=== PATIENT | male | born 1945 | race Caucasian/White ===

== ENCOUNTER 2017-02-20 05:58 | Inpatient (IN) | payer OTHER ==
[2017-02-13 10:40] LABS: URINE BILIRUBIN NEGATIVE (Negative); URINE BLOOD NEGATIVE (Negative); URINE COLOR YELLOW; URINE GLUCOSE-RANDOM* NEGATIVE (Negative); URINE KETONES NEGATIVE (Negative); URINE LEUKOCYTES-REFLEX NEGATIVE (Negative); URINE PROTEIN (DIPSTICK) NEGATIVE (Negative); URINE SPECIFIC GRAVITY <= 1.005 (1.003-1.035); URINE UROBILINOGEN 0.2 E.U./dl (0.2-1.0)
[2017-02-13 10:42] LABS: CALCIUM 9.5 mg/dL (8.5-10.1); CREATININE 0.9 mg/dL (0.7-1.3); POTASSIUM 4.7 mmol/L (3.5-5.1)
[2017-02-13 10:48] LABS: PROTIME 10.8 Seconds (9.3-11.4)
[~2017-02-20] VITALS: Ht 177.8 cm; Wt 108.0 kg
[2017-02-20] VITALS (8 sets, daily range): BP systolic 130–174; BP diastolic 45–73
[~2017-02-20 05:58] MED LIST: ASPIR 8181 MG PO; LIPITOR 20 MG T20 M1 PO; METFORMIN HCL1000 MG PO; VALSARTAN-HCTZ1 EAC4 PO; VITAMIN D-32000 UNIT PO
[2017-02-20 10:51] LABS: CALCIUM 8.9 mg/dL (8.5-10.1); CREATININE 0.9 mg/dL (0.7-1.3); POTASSIUM 4.5 mmol/L (3.5-5.1)
[2017-02-21 03:25] VITALS: BP 137/47
[2017-02-21 06:09] LABS: ABSOLUTE NEUTROPHILS 8.6 thou/uL (1.4-8.2); BASOPHILS 0.1 % (0.0-2.0); HEMATOCRIT 36.5 % (42.0-52.0); HEMOGLOBIN 12.4 gm/dL (14.0-18.0); LYMPHOCYTES 9.2 % (24.0-44.0); MCH 31.7 pg (26.0-34.0); MCHC 33.9 g/dL (28.0-37.0); MCV 93.4 fL (80.0-100.0); MONOCYTES 7.8 % (1.0-8.0); PLATELET COUNT 153 thou/uL (150-400); POLYS 82.9 % (36.0-66.0); RDW 12.7 % (10.5-14.5); WBC 10.4 thou/uL (4.0-11.0)
[2017-02-21 06:15] LABS: MANUAL DIFF NO
[2017-02-21 06:25] LABS: CALCIUM 8.5 mg/dL (8.5-10.1); CREATININE 1.3 mg/dL (0.7-1.3); MAGNESIUM 1.9 mg/dL (1.8-2.4); POTASSIUM 4.3 mmol/L (3.5-5.1)
[2017-02-21 08:18] VITALS: BP 141/48
[2017-02-21 12:32] VITALS: BP 141/48
[2017-02-21 16:00] VITALS: BP 154/52
[2017-02-21 19:07] VITALS: BP 150/46
[2017-02-22 01:44] VITALS: BP 166/55
[2017-02-22 04:27] VITALS: BP 126/59
[2017-02-22 05:45] LABS: HEMATOCRIT 35.1 % (42.0-52.0); HEMOGLOBIN 11.8 gm/dL (14.0-18.0); MCH 31.9 pg (26.0-34.0); MCHC 33.6 g/dL (28.0-37.0); MCV 94.7 fL (80.0-100.0); RBC 3.71 mil/uL (4.50-6.00); RDW 12.7 % (10.5-14.5); WBC 9.7 thou/uL (4.0-11.0)
[2017-02-22] MEDS ORDERED: XARELTO10 MG PO (06:41)
[2017-02-22] MEDS ORDERED: HYDROCODONE-APA1 TA1 PO (06:41)
[2017-02-22 07:10] VITALS: BP 136/57
[2017-02-22 11:10] VITALS: BP 141/48
== END 2017-02-22 12:55 | disposition home health service (06) | DRG 470 ==
LOC: 5S 05:58 → TBA 05:58 → 5S 06:36 → PRE 11:02 → 5S 13:10
PROVIDERS: Nurse Practitioner; Orthopaedic Surgery
PROC: 0SR90JZ Replacement of Right Hip Joint with Synthetic Substitute, Open Approach (ICD-10-PCS; principal; 2017-02-20)
DX: M16.11 Unilateral primary osteoarthritis, right hip (principal); N17.9 Acute kidney failure, unspecified; I10 Essential (primary) hypertension; E78.5 Hyperlipidemia, unspecified; M17.11 Unilateral primary osteoarthritis, right knee; E78.00 Pure hypercholesterolemia, unspecified; E11.9 Type 2 diabetes mellitus without complications; Z85.46 Personal history of malignant neoplasm of prostate; Z92.3 Personal history of irradiation; Z79.82 Long term (current) use of aspirin; Z79.899 Other long term (current) drug therapy; Z87.891 Personal history of nicotine dependence
CPT/HCPCS: 10785; 50010; 50101; 50149; 50382; 50414; 50455; 50855; 50939; 51412; 51771; 55388; 56521; 56525; 56527; 56530; 57095; 62110; 62900; 70005

== ENCOUNTER 2017-03-12 14:20 | Observation (INO) | payer OTHER ==
[~2017-03-12] VITALS: Ht 177.8 cm; Wt 108.4 kg
--- NOTE | ~2017-03-12 | EKG ---
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
[~2017-03-12 14:20] MED LIST changes: +HYDROCODONE-APA1 TA1 PO; +XARELTO10 MG PO
[2017-03-12 14:23] VITALS: BP 167/52
[2017-03-12 15:26] LABS: HEMATOCRIT 35.1 % (42.0-52.0); HEMOGLOBIN 11.9 gm/dL (14.0-18.0); MCH 31.4 pg (26.0-34.0); MCV 92.5 fL (80.0-100.0); PLATELET COUNT 241 thou/uL (150-400); RBC 3.79 mil/uL (4.50-6.00); RDW 13.1 % (10.5-14.5); WBC 6.6 thou/uL (4.0-11.0)
[2017-03-12 15:43] LABS: MANUAL DIFF YES
[2017-03-12 15:53] LABS: ANION GAP 9 mmol/L (7-16); BUN 15 mg/dL (7-18); CALCIUM 9.6 mg/dL (8.5-10.1); CHLORIDE 103 mmol/L (98-107); CO2 26 mmol/L (21-32); GLUCOSE 151 mg/dL (74-106); POTASSIUM 4.7 mmol/L (3.5-5.1); SODIUM 138 mmol/L (136-145)
[2017-03-12 16:01] LABS: ALBUMIN 3.6 g/dL (3.4-5.0); ALKALINE PHOSPHATASE 116 U/L (46-116); SGOT 27 U/L (15-37); SGPT 37 U/L (30-65); TOTAL BILIRUBIN 0.3 mg/dL (<0.1-1.0); TOTAL PROTEIN 7.4 g/dL (6.4-8.2); TROPONIN-I < 0.04 ng/mL (<0.04-0.07)
[2017-03-12 16:08] LABS: ABSOLUTE NEUTROPHILS 5.6 thou/uL (1.4-8.2); TOTAL CELL COUNT 100
[2017-03-12 16:09] LABS: ANISOCYTOSIS 1+; POLYCHROMASIA OCCASIONAL
[2017-03-12 19:14] VITALS: BP 164/60
[2017-03-12 19:15] VITALS: BP 178/59
[2017-03-13] VITALS: BP 139/49
[2017-03-13 04:36] LABS: HEMATOCRIT 29.7 % (42.0-52.0); HEMOGLOBIN 10.3 gm/dL (14.0-18.0); MCH 32.1 pg (26.0-34.0); MCHC 34.6 g/dL (28.0-37.0); MCV 92.6 fL (80.0-100.0); RBC 3.21 mil/uL (4.50-6.00); RDW 13.1 % (10.5-14.5); WBC 6.6 thou/uL (4.0-11.0)
[2017-03-13 04:54] LABS: CALCIUM 8.6 mg/dL (8.5-10.1); CREATININE 1.3 mg/dL (0.7-1.3); POTASSIUM 3.8 mmol/L (3.5-5.1)
[2017-03-13 08:20] VITALS: BP 148/50
[2017-03-13] MEDS ORDERED: ANTIVERT25 MG PO (13:55)
[2017-03-13 14:12] VITALS: BP 148/50
== END 2017-03-13 15:40 | disposition home or self-care (01) ==
LOC: ER 14:20 → EROBS 18:21 → 3N 18:21
PROVIDERS: Hospitalist; Physician Assistant
DX: R42 Dizziness and giddiness (principal); I10 Essential (primary) hypertension; E78.5 Hyperlipidemia, unspecified; C61 Malignant neoplasm of prostate; E11.8 Type 2 diabetes mellitus with unspecified complications; R11.2 Nausea with vomiting, unspecified; M16.11 Unilateral primary osteoarthritis, right hip; Z72.89 Other problems related to lifestyle; Z87.891 Personal history of nicotine dependence
CPT/HCPCS: 23024